=== PATIENT | female | born 1960 | race Caucasian/White ===

== ENCOUNTER 2018-04-14 05:20 | Day surgery (SDC) | payer OTHER ==
[2018-04-14 06:39] LABS: PARTIAL THROMBOPLASTIN TIME 28.1 Sec (23.0-35.0)
[2018-04-14] MEDS ORDERED: BUPIVACAINE 0.25% (MPF) 30 ML INJ (07:00)
[2018-04-14] MEDS ORDERED: DESFLURANE 15 MIN (07:00)
[2018-04-14] MEDS ORDERED: PROPOFOL 20 ML (07:42)
[2018-04-14] MEDS ORDERED: ROCURONIUM 50 MG INJ (07:42)
[2018-04-14] MEDS ORDERED: ONDANSETRON 4 MG INJ (07:42)
[2018-04-14] MEDS ORDERED: CEFAZOLIN 1 GM INJ (07:42)
[2018-04-14] MEDS ORDERED: GLYCOPYRROLATE 0.4 MG INJ (07:42)
[2018-04-14] MEDS ORDERED: MIDAZOLAM 1 MG/ML 2 ML INJ (07:42)
[2018-04-14] MEDS ORDERED: FENTAnyl 50 MCG/ML VIAL (07:42)
[2018-04-14] MEDS ORDERED: NEOSTIGMINE 3 MG/3 ML SYRINGE (07:42)
[2018-04-14] MEDS ORDERED: DEXAMETHASONE 4 MG/ML 5 ML INJ (07:43)
[2018-04-14] MEDS ORDERED: ROPIVACAINE 0.5 % 30 ML VIAL (07:45)
[2018-04-14] MEDS ORDERED: ALBUTEROL 0.083% (NEB) 2.5 MG/3 ML AMP HHN (08:00)
[2018-04-14] MEDS ORDERED: TRIMETHOBENZAMIDE 100 MG/ML VIAL IM (08:00)
[2018-04-14] MEDS ORDERED: IPRATROPIUM (NEB) 0.5 MG/2.5 ML AMP HHN (08:00)
[2018-04-14] MEDS ORDERED: DIPHENHYDRAMINE 50 MG INJ IV (08:00)
[2018-04-14] MEDS ORDERED: MIDAZOLAM 1 MG/ML 2 ML INJ IV (08:00)
[2018-04-14] MEDS ORDERED: EPHEDrine SULFATE 50 MG/5 ML SYG IV (08:00)
[2018-04-14] MEDS ORDERED: MEPERIDINE 25 MG INJ IV (08:00)
[2018-04-14] MEDS ORDERED: HYDROmorphONE 1 MG/5 ML IV SYRINGE IV (08:00)
[2018-04-14] MEDS ORDERED: ONDANSETRON 4 MG INJ IV (08:00)
[2018-04-14] MEDS ORDERED: LABETALOL HCL 20MG INJ IV (08:00)
[2018-04-14] MEDS ORDERED: FENTAnyl 50 MCG/ML VIAL IV ×3 (08:00)
[2018-04-14] MEDS ORDERED: hydrALAzine 20 MG INJ IV (08:00)
[2018-04-14] MEDS ORDERED: OXYCODONE/ACETAMINOPHEN (5/325) TAB PO ×2 (08:00)
[2018-04-14] MEDS ORDERED: HYDROCODONE/APAP (5/325) TAB PO (09:00)
[2018-04-14] MEDS: HYDROmorphONE 1 MG/5 ML IV SYRINGE IV ×2 (09:46→09:58)
== END 2018-04-14 11:08 | disposition home or self-care (01) ==
LOC: SDS 05:20
DX: K80.10 Calculus of gallbladder with chronic cholecystitis without obstruction (principal); K80.20 Calculus of gallbladder without cholecystitis without obstruction; I10 Essential (primary) hypertension
CPT/HCPCS: 47562; 85730; 88304; 93005